=== PATIENT | male | born 1970 | race African-American/Black ===

== ENCOUNTER 2017-11-29 17:56 | Emergency (ER) | payer MEDICAID, OTHER ==
[2017-11-29] MEDS ORDERED: NAPROXEN 250 MG TABLET PO ONE (18:51)
[2017-11-29] MEDS ORDERED: LIDOCAINE 5% (700 MG) TRANSDERMAL ADH..PATCH TP ONE (18:52)
[2017-11-29] MEDS ORDERED: METHOCARBAMOL 500 MG TABLET PO ONE (18:52)
--- NOTE | 2017-11-29 18:59 | ER Document Report ---
ED Neck/Back Problem - General Chief Complaint: Neck and Upper Back Pain Stated Complaint: NECK PAIN Time Seen by Provider: 11/29/17 18:19 Mode of Arrival: Ambulatory Information source: Patient Notes: 46-year-old male presented to ED for complaint of pain to the left side of his neck radiating to the shoulder and upper back times over a month. He states is gotten worse over the last couple days. He states he is used icy hot ibuprofen and Tylenol with no relief. He states he has not called his primary doctor or followed up with his primary doctor. He states he does not know of any injuries that he has done that he has somehow caused pain to these muscles that will not get better. Patient is alert and oriented respirations regular and unlabored speaking in full sentences. TRAVEL OUTSIDE OF THE [place] IN LAST 30 DAYS: No - HPI Patient complains to provider of: Pain, Neck, Upper back - Left shoulder Onset: Other - Several months Onset: Chronic Timing: Still present Quality of pain: Burning, Sharp Severity: Severe Pain Level: 5 Context: Lifting, Turning Recent injury: Possibly Associated symptoms: Upper back pain - 2 left shoulder and left neck Exacerbated by: Movement of neck, Movement of trunk Relieved by: Nothing Similar symptoms previously: Yes Recently seen / treated by doctor: No - Related Data Allergies/Adverse Reactions: No Known Drug Allergies Allergy (Severe, Verified 11/29/17 17:59) Seafood Allergy (Unknown, Uncoded 11/29/17 17:59) Past Medical History - General Information source: Patient - Social History Smoking Status: Current Every Day Smoker Cigarette use (# per day): Yes Chew tobacco use (# tins/day): No Frequency of alcohol use: Occasional Drug Abuse: None Occupation: Retail Lives with: Family Family History: Reviewed & Not Pertinent Patient has suicidal ideation: No Patient has homicidal ideation: No - Past Medical History Cardiac Medical History: Reports: None Pulmonary Medical History: Reports: Hx Asthma, Hx Tuberculosis EENT Medical History: Reports: None Neurological Medical History: Reports: None Endocrine Medical History: Reports: Hx Diabetes Mellitus Type 2 Renal/ Medical History: Reports: None Malignancy Medical History: Reports None Musculoskeletal Medical History: Reports Hx Musculoskeletal Trauma Skin Medical History: Reports None Psychiatric Medical History: Reports: None Traumatic Medical History: Reports: None Infectious Medical History: Reports: None Past Surgical History: Reports: Hx Oral Surgery - Immunizations Hx Diphtheria, Pertussis, Tetanus Vaccination: Yes Hx Pneumococcal Vaccination: 07/28/11 Review of Systems - Review of Systems Constitutional: No symptoms reported EENT: No symptoms reported Cardiovascular: No symptoms reported Respiratory: No symptoms reported Gastrointestinal: No symptoms reported Genitourinary: No symptoms reported Male Genitourinary: No symptoms reported Musculoskeletal: Back pain - Left upper back, shoulder, neck, Muscle pain, Muscle stiffness, Neck pain Skin: No symptoms reported Hematologic/Lymphatic: No symptoms reported Neurological/Psychological: No symptoms reported -: Yes All other systems reviewed and negative Physical Exam - Vital signs Vitals: Temp Pulse Resp BP Pulse Ox 98.6 F 100 16 153/94 H 98 11/29/17 18:12 11/29/17 18:12 11/29/17 18:12 11/29/17 18:12 11/29/17 18:12 Interpretation: Normal - General General appearance: Appears well, Alert - HEENT Head: Normocephalic, Atraumatic Eyes: Normal Pupils: PERRL - Respiratory Respiratory status: No respiratory distress Chest status: Nontender Breath sounds: Normal Chest palpation: Normal - Cardiovascular Rhythm: Regular Heart sounds: Normal auscultation Murmur: No - Abdominal Inspection: Normal Distension: No distension Bowel sounds: Normal Tenderness: Nontender Organomegaly: No organomegaly - Back Back: Normal, Tender - Left upper back neck and shoulder mostly on the left upper back, Vertebra tenderness. No: Deformity/step-off, CVA tenderness, Scars , Scoliosis, Wounds - Extremities General upper extremity: Normal inspection, Nontender, Normal color, Normal ROM , Normal temperature General lower extremity: Normal inspection, Nontender, Normal color, Normal ROM , Normal temperature, Normal weight bearing. No: Arpit's sign - Neurological Neuro grossly intact: Yes Cognition: Normal Orientation: AAOx4 [place] Coma Scale Eye Opening: Spontaneous Xavier Coma Scale Verbal: Oriented [place] Coma Scale Motor: Obeys Commands Xavier Coma Scale Total: 15 Speech: Normal Motor strength normal: LUE, RUE, LLE, RLE Sensory: Normal - Psychological Associated symptoms: Normal affect, Normal mood - Skin Skin Temperature: Warm Skin Moisture: Dry Skin Color: Normal Course - Re-evaluation Re-evalutation: 11/29/17 20:42 She was treated with naproxen and Robaxin and Lidoderm patch. Patient was instructed to follow-up with orthopedics for this muscle pain. There is no bony tenderness to this area. It is all muscles to the left upper back shoulder and neck. Patient was given instructions on ice hot packs and range of motion exercises to his shoulder. Patient verbalized understanding and agreement with treatment plan. - Vital Signs Vital signs: Temp Pulse Resp BP Pulse Ox 98.0 F 92 20 169/106 H 97 11/29/17 19:05 11/29/17 19:05 11/29/17 19:05 11/29/17 19:05 11/29/17 19:05 Discharge - Discharge Clinical Impression: Left shoulder pain Qualifiers: Chronicity: unspecified Qualified Code(s): M25.512 - Pain in left shoulder Condition: Stable Disposition: HOME, SELF-CARE Additional Instructions: Shoulder Injury You have injured your shoulder. This usually results from stretching or tearing of the tendons during trauma. Time and protection are required in order to heal properly. Many injuries are quite disabling, and should be taken seriously. Initial treatment includes cold packs and a sling to rest the shoulder. The physician has assessed the seriousness of your injury, and has outlined a treatment plan. Understand that this treatment may change, depending on how you progress. If a re-examination was recommended, it is important that you follow up as instructed. Some shoulder injuries (such as partial tear of the rotator cuff) are only suspected after you've failed to improve. Call us if there's severe pain, numbness, or loss of function. Anti-Inflammatory Medication You have received a prescription for an antiinflammatory agent. This is an excellent, safe drug for pain control. In addition, it has potent antiinflammatory effects which are beneficial, especially in the treatment of injuries, arthritis, or tendonitis. It's best to take this medicine with food. Persons with ulcer disease or allergy to aspirin should notify their physician of this before taking this drug. Take the medication exactly as prescribed. Don't take additional doses unless instructed to do so by your doctor. If you develop wheezing, shortness of breath, hives, faintness, stomach pain, vomiting, or dark black stools, return for re-evaluation at once. Exercise Program for the Shoulder Since the shoulder moves in so many directions, the joint attachment is weak. Muscles provide most of the stability to the shoulder. You must exercise your shoulder to prevent painful instability or stiffening. PASSIVE - These may be begun within a few days of the injury. While standing, lean forward, allowing the arm to hang down towards the floor. Move the arm in small circles while slowly twisting your chest towards and away from the hanging arm. Do this for one minute. ACTIVE - These may be performed when the doctor gives permission. Begin with the arms at the sides. Raise the arms forward (shoulder's width apart) until they reach shoulder level. Then slowly swing both arms back until they are aiming straight out away from each other. Then bring them forward again, and finally, lower them to your sides. Repeat 20 to 30 times. As you improve, put weights in your hands for the exercise. Start with one pound, and work up to 10 pounds. Never use more than is comfortable. Athletes may work up to 30 pounds. Ice Packs Apply ice packs frequently against the painful area. Many different schedules are recommended, such as "20 minutes on, 20 minutes off" or "one hour ice, two hours rest." If you need to work, you may need to go longer between ice treatments. You should plan to have the area ice packed AT LEAST one fourth of the time. The ice should be applied over the wrap, tape, or splint, or over a layer of cloth -- not directly against the skin. Some ice bags have a built-in cloth and can be put directly on the skin. You will treated with a Lidoderm patch in the emergency room. This needs to be removed in 12 hours. No lidocaine patch replaced for at least 12 hours you can buy lidocaine patches [id number] they may even have him at [facility]. You need to follow the directions on the package. FOLLOW-UP CARE: If you have been referred to a physician for follow-up care, call the physician s office for an appointment as you were instructed or within the next two days. If you experience worsening or a significant change in your symptoms, notify the physician immediately or return to the Emergency Department at any time for re-evaluation. Prescriptions: Lidocaine [Lidoderm 5% (700 mg) Transdermal Patch] 1 patch TP DAILY #30 adh..patch Methocarbamol [Robaxin 500 mg Tablet] 500 mg PO BIDP PRN #14 tablet PRN Reason: Naproxen 500 mg PO BIDP PRN #14 tablet PRN Reason: Forms: Elevated Blood Pressure, Return to Work Referrals: YUNIOR CORBIN MD [Primary Care Provider] - Follow up as needed SCOTT VILLALBA MD [ACTIVE STAFF] - Follow up as needed
[2017-11-29 19:11] VITALS: BP 169/106
== END 2017-11-29 19:11 | disposition home or self-care (01) ==
LOC: ER 17:56
DX: M25.512 Pain in left shoulder (principal); M54.2 Cervicalgia; M54.6 Pain in thoracic spine; F17.210 Nicotine dependence, cigarettes, uncomplicated; E11.9 Type 2 diabetes mellitus without complications; Z91.013 Allergy to seafood
CPT/HCPCS: 99283

== ENCOUNTER → 2018-01-01 | Outpatient (CLI) | payer BC, OTHER | LOC: OD 12:33 | PROVIDERS: ATTEND Orthopaedic Surgery | DX: E13.3 Other specified diabetes mellitus with ophthalmic complications (principal) | CPT/HCPCS: 36415; 83036 ==